=== PATIENT | female | born 2000 | race Caucasian/White ===

== ENCOUNTER 2020-06-21 10:24 | Emergency (ER) | payer MEDICAID ==
[~2020-06-21] VITALS: Ht 154.9 cm; Wt 65.9 kg
[2020-06-21] MEDS ORDERED: IBUPROFEN 800 MG TABLET PO ONE (13:15)
[2020-06-21 14:01] VITALS: BP 126/86
== END 2020-06-21 14:06 | disposition home or self-care (01) ==
LOC: EMS 10:24
DX: N60.11 Diffuse cystic mastopathy of right breast (principal); N60.12 Diffuse cystic mastopathy of left breast; M94.0 Chondrocostal junction syndrome [Tietze]; F17.200 Nicotine dependence, unspecified, uncomplicated
CPT/HCPCS: Z7502; Z7610